=== PATIENT | female | born 1970 | race Caucasian/White ===

== ENCOUNTER 2019-11-25 23:27 | Emergency (ER) | payer SELFPAY ==
--- NOTE | 2019-11-26 00:13 | ED ---
Hypertension - HPI Summary HPI Summary: The patient is a 48 y/o F presenting to [facility] with a chief complaint of hypertensive episode tonight. She reports that she was feeling a little off during the day and had been doing her laundry tonight when she decided to measure her BP with a reading of 200/108 mmHg. She then rested and took a Benazepril, which she had left over from HTN but has not been taking as she and her PCP agreed for exercise-induced management. She re-measured her BP to find that it had decreased to 148/99 mmHg. She then felt a sensation in the posterior head described as an adrenaline guzman, which caused her to have an increased BP again. She is primarily asymptomatic without any headaches or blurred vision. She notes chest heaviness which she attributes to increased stress with family. She is unsure if her symptoms are related to a panic attack , which she has experienced before but with a different symptom complex. Blood pressure in room is 192/109 bpm. PMHx: HTN, PCOS, depression. Nonsmoker, occasinoal EtOH, no substance use. Medications reviewed. Allergies noted. - History of Current Complaint Chief Complaint: EDHypertension Stated Complaint: HIGH BP PER PT Time Seen by Provider: 11/26/19 00:03 Hx Obtained From: Patient Onset/Duration: Started Hours Ago, Still Present Timing: Intermittent, Lasting Minutes Reported Blood Pressure Prior To Arrival: 210/109 mmHg Aggravating Factor(s): Other: - possible panic attack Associated Signs & Symptoms: Chest Pain, Anxiety/Stress, Other: - Negative: vision changes, headache Related Hx: Diagnosed As: - HTN - Allergies/Home Medications Allergies/Adverse Reactions: Allergies Allergy/AdvReac Type Severity Reaction Status Date / Time amoxicillin Allergy Rash Verified 11/25/19 23:31 Sulfa (Sulfonamide Allergy Rash Verified 11/25/19 23:31 Antibiotics) PMH/Surg Hx/FS Hx/Imm Hx Cardiovascular History: Reports: Hx Hypertension Denies: Hx Hypercholesterolemia History: Reports: Other Problems/Disorders - PCOS Sensory History: Reports: Hx Contacts or Glasses Opthamlomology History: Reports: Hx Contacts or Glasses Psychiatric History: Reports: Hx Depression - Surgical History Surgical History: None Surgery Procedure, Year, and Place: none Infectious Disease History: No Infectious Disease History: Denies: Traveled Outside the [place] in Last 30 Days - Family History Known Family History: Negative: Renal Disease, Respiratory Disease - Social History Alcohol Use: Occasionally Hx Substance Use: No Substance Use Type: Reports: None Hx Tobacco Use: No Smoking Status (MU): Never Smoked Tobacco Review of Systems Negative: Blurred Vision Positive: Chest Pain - heaviness, Other - hypertensive Negative: Headache Positive: Anxious, Other - stress All Other Systems Reviewed And Are Negative: Yes Physical Exam - Summary Physical Exam Summary: Appearance: Well-appearing, Well-nourished, lying in bed comfortably Skin: Warm, dry, no obvious rash Eyes: sclera anicteric, no conjunctival pallor ENT: mucous membranes moist, pharynx appears normal Neck: Supple, nontender Respiratory: Clear to auscultation, no signs of respiratory distress Cardiovascular: Normal S1, S2. No murmurs. Normal distal pulses in tibial and radial bilaterally. Abdomen: Soft, nontender, normal active bowel sounds present Musculoskeletal: Normal, Strength/ROM Intact Neurological: A&Ox3, awake and alert, mentation is normal, speech is fluent and appropriate Psychiatric: affect is normal, does not appear anxious or depressed Triage Information Reviewed: Yes Vital Signs On Initial Exam: Initial Vitals Temp Pulse Resp BP Pulse Ox 97.8 F 104 16 216/117 97 11/25/19 23:28 11/25/19 23:28 11/25/19 23:28 11/25/19 23:28 11/25/19 23:28 Vital Signs Reviewed: Yes Procedures - Sedation Patient Received Moderate/Deep Sedation with Procedure: No Diagnostics - Vital Signs Vital Signs Temp Pulse Resp BP Pulse Ox 11/25/19 23:28 97.8 F 104 16 216/117 97 - Laboratory Result Diagrams: 11/26/19 00:18 11/26/19 00:18 Lab Statement: Any lab studies that have been ordered have been reviewed, and results considered in the medical decision making process. - EKG 0012 Cardiac Rate: NL - 88 bpm EKG Rhythm: Sinus Rhythm Summary of EKG Findings: NSR at 88 BPM, P waves, QRS complex, and T waves are within normal limits, T waves and intervals are normal, no ischemic changes. This is a normal EKG. ED physician has reviewed and interpreted this EKG. Re-Evaluation - Re-Evaluation First Eval Re-Evaluation Time: 00:50 Change: Improved Comment: BP is 150/103 mmHg Hypertension Course/Dx - Course Course Of Treatment: 48 y/o F presenting with asymptomatic hypertension throughout the night with reading of 200/108 mmHg before improving to 148/99 mmHg with rest and Benazepril (doesnt usually take as agreed with PCP), but had increased again possibly due to anxiety and stress. Physical exam reveals no acute abnormalities. Blood work obtained and reveals WBCs of 11.4, BUN of 25 , creatinine of 1.11, and glucose of 105. Patient administered Labetalol in the ED. EKG at 0012 reveals NSR at 88 bpm without ischemic changes. BP improved, and patient is safe for discharge. Patient understands and agrees with plan. Rx for Labetalol. Dx chronic hypertension. - Diagnoses Provider Diagnoses: Chronic hypertension Discharge ED - Sign-Out/Discharge Documenting (check all that apply): Patient Departure - Patient will be discharged home. - Discharge Plan Condition: Good Disposition: HOME Prescriptions: Labetalol TAB* [Trandate TAB*] 100 mg PO BID #60 tab Patient Education Materials: Chronic Hypertension (ED) Referrals: [facility], [[facility], APPLICATION, OTHER] - - Billing Disposition and Condition Condition: GOOD Disposition: Home - Attestation Statements Document Initiated by Miguelibe: Yes Documenting Scribe: Aspen Wheatley Provider For Whom Tammy is Documenting (Include Credential): Dr. Jeremy Li MD Scribe Attestation: Aspen Milner scribed for Dr. Jeremy Li MD on 11/26/19 at 0606. Scribe Documentation Reviewed: Yes Provider Attestation: The documentation as recorded by the Aspen vega accurately reflects the service I personally performed and the decisions made by me, Dr. Jeremy Li MD Status of [place]ribor[place] Document: Viewed
[2019-11-26 00:23] LABS: ABS Basophils 0.1 10^3/ul (0-0.2); ABS Eosinophils 0.2 10^3/ul (0-0.6); ABS Lymphocytes 2.7 10^3/ul (1.0-4.8); ABS Monocytes 0.7 10^3/ul (0-0.8); ABS Neutrophils 7.8 10^3/ul (1.5-7.7); Eosinophil % 1.6 %; Hematocrit 40 % (35-47); Hemoglobin 13.8 g/dL (12.0-16.0); Lymphocyte % 23.4 %; Mean Corpuscular HGB Conc 34 g/dL (31-36); Mean Corpuscular Hemoglobin 30 pg (27-31); Mean Corpuscular Volume 87 fL (80-97); Mean Platelet Volume 8.9 fL (7.4-10.4); Nucleated Red Blood Cells % 0.1; Platelet Count 251 10^3/uL (150-450); Red Cell Distribution Width 14 % (10-15); White Blood Count 11.4 10^3/uL (3.5-10.8)
[2019-11-26] MEDS ORDERED: Labetalol TAB* 100 MG PO ONE (00:35)
[2019-11-26 00:41] LABS: BUN/Creatinine Ratio 22.5 (8-20); Calcium 9.7 mg/dL (8.6-10.3); EGFR African American 63.8 (>60); EGFR Non-African American 52.7 (>60); Potassium 4.4 mmol/L (3.5-5.0)
[2019-11-26 01:13] VITALS: BP 167/99
== END 2019-11-26 01:10 | disposition home or self-care (01) ==
LOC: ED 23:27
DX: I10 Essential (primary) hypertension (principal); F32.9 Major depressive disorder, single episode, unspecified; Z79.899 Other long term (current) drug therapy; Z88.0 Allergy status to penicillin; Z88.2 Allergy status to sulfonamides
CPT/HCPCS: 36415; 80048; 85025; 93005; 99282; A9270-GY